=== PATIENT | male | born 1985 | race Caucasian/White ===

== ENCOUNTER 2016-05-18 08:29 | Emergency (ER) | payer SELFPAY ==
[~2016-05-18] VITALS: Ht 180.3 cm; Wt 74.8 kg
--- NOTE | 2016-05-18 09:38 | ED Back Pain ---
General Chief Complaint: Back Problems Stated Complaint: R LOWER BACK PAIN Nursing Triage Note: TO ROOM 10 VIA AMB WITHOUT DIFFICULTY. COMPLAINS OF LEFT SIDED BACK PAIN X2 YEARS THAT HAS BECAME WORSE STARTING YESTERDAY. STATES HE IS TAKING EXTRA STRENGTH TYLENOL WHICH IS NOT HELPING. Nursing Sepsis Screen: No Definite Risk Source of Information: Patient, Family Exam Limitations: No Limitations History of Present Illness Time Seen by Provider: 09:34 Initial Comments This 30-year-old white male presents with a complaint of severe right low back pain. Patient has had similar low back pains intermittently for the last several years. The patient's sharp pain located over the right SI joint radiates down into his right leg. The patient has had no imaging done to this point. The patient denies any injury of significance to the low back. Patient states that the pain is made worse by remaining in a sitting position such as driving. He has had no associated foot drop or loss of sensation to the right lower extremity. The patient denies any saddle anesthesia or bowel or bladder impairment. The patient's past medical history was essentially noncontributory to the present illness. Allergies and Home Medications Allergies Coded Allergies: No Known Drug Allergies (Unverified , 05/18/16) Home Medications No Active Prescriptions or Reported Meds Constitutional: No chills, No fever EENTM: No dental problems Respiratory: No cough Cardiovascular: No chest pain Gastrointestinal: No abdominal pain, No nausea Genitourinary: No decreased output, No dysuria, No frequency Musculoskeletal: see HPI, back pain Skin: No rash Psychiatric/Neurological: No Symptoms Reported Past [id number]-[id number]-Vcjwgd Hx Patient Social History Alcohol Use: Occasionally Uses Recreational Drug Use: No Smoking Status: Current Everyday Smoker Recent Foreign Travel: No Contact w/Someone Who Travel: No Recent Infectious Disease Expo: No Recent Hopitalizations: No Surgeries HX Surgeries: Yes Surgeries: Orthopedic Respiratory Hx Respiratory Disorders: No Cardiovascular Hx Cardiac Disorders: No Neurological Hx Neurological Disorders: No Reproductive System Hx Reproductive Disorders: No Genitourinary Hx Genitourinary Disorders: No Gastrointestinal Hx Gastrointestinal Disorders: No Musculoskeletal Hx Musculoskeletal Disorders: Yes Musculoskeletal Disorders: Chronic Back Pain Endocrine Hx Endocrine Disorders: No HEENT HX ENT Disorders: No Cancer Hx Cancer: No Psychosocial Hx Psychiatric Problems: No Reviewed Nursing Assessment Reviewed/Agree w Nursing PMH: Yes Physical Exam Vital Signs Vital Sign - Last 12Hours 05/18/16 08:30 Temp 98.0 Pulse 100 Resp 16 B/P (MAP) 118/80 Pulse Ox 98 Capillary Refill : Less Than 3 Seconds General Appearance: WD/WN, Mild Distress HEENT: Normal ENT Inspection Neck: Full Range of Motion, Normal Inspection Cardiovascular: Regular Rate, Rhythm Respiratory: Chest Non Tender, Lungs Clear Gastrointestinal: Normal Bowel Sounds, Non Tender, Soft Back: Normal Inspection Extremity: Normal Inspection, Normal Range of Motion Neurologic/Psychiatric: Alert, Oriented x3, No Motor/Sensory Deficits Skin: Normal Color, Warm/Dry Progress/Results/Core Measures Results/Orders My Orders Orders - PATRICIA GOMEZ MD Ct Lumbar Spine Wo (05/18/16 09:32) Fentanyl Injection (Sublimaze Injection (05/18/16 09:45) Ketorolac Injection (Toradol Injection) (05/18/16 09:45) Diazepam Tablet (Valium Tablet) (05/18/16 09:45) Medications Given in ED Current Medications Medications Dose Ordered Sig/Trisha Route Start Time Stop Time Status Last Admin Dose Admin Diazepam 5 mg ONCE ONCE PO 05/18/16 09:45 05/18/16 09:46 DC 05/18/16 09:45 5 MG Fentanyl Citrate 50 mcg ONCE ONCE IVP 05/18/16 09:45 05/18/16 09:46 DC 05/18/16 09:44 50 MCG Ketorolac Tromethamine 60 mg ONCE ONCE IM 05/18/16 09:45 05/18/16 09:46 DC 05/18/16 09:45 60 MG Vital Signs/I&O Vital Sign - Last 12Hours 05/18/16 08:30 Temp 98.0 Pulse 100 Resp 16 B/P (MAP) 118/80 Pulse Ox 98 Blood Pressure Mean: 93 Progress Note : Time: 10:59 Progress Note The patient's LS-spine films demonstrate a moderate disc extrusion of the lower lumbar elements. Patient received fentanyl IM in the emergency department for pain. He was given 60 mg of Toradol IM for pain as well. I discussed findings with patient and patient was employed hydrocodone, Norflex , and Toradol at home for pain. I asked him to call or return if problems or questions. Departure Impression Impression: Primary Impression: Lumbar radiculopathy Additional Impression: Back pain Qualified Codes: M54.41 - Lumbago with sciatica, right side Disposition: 01 HOME, SELF-CARE Condition: Improved Departure-Patient Inst. Decision time for Depature: 11:01 Referrals: NO,LOCAL PHYSICIAN (PCP) Primary Care Physician HERBERT KIRBY DO Patient Instructions: Low Back Pain (DC), MANAGING YOUR CHRONIC PAIN, Radiculopathy (DC) Add. Discharge Instructions: Hydrocodone, Norflex, and Toradol as prescribed. Moist heat and/or ice to the low back for symptomatic relief. Come back if any problems or questions. Follow-up with Dr. Kirby for further evaluation as needed. All discharge instructions reviewed with patient and/or family. Voiced understanding. Scripts No Active Prescriptions or Reported Meds PATRICIA GOMEZ MD May 18, 2016 09:38
[2016-05-18] MEDS ORDERED: KETOROLAC 60 MG/2 ML VIAL IM ONE (09:45)
[2016-05-18] MEDS ORDERED: fentaNYL INJECTION 100 MCG/2 ML AMP IVP ONE (09:45)
[2016-05-18] MEDS ORDERED: DIAZEPAM 5 MG (VALIUM) TABLET PO ONE (09:45)
--- NOTE | 2016-05-18 10:34 | Diagnostic Imaging Report ---
CLINICAL INDICATION: Patient with right posterior buttocks pain x24 hours. No history of trauma. EXAM: Axial CT scan of the lumbar spine performed without IV contrast. Sagittal and coronal reformatted images are created. COMPARISON: X-ray of the lumbar spine dated 05/08/2007. FINDINGS: There is no significant paraspinal soft tissue abnormality. There is incompletely imaged mild leftward curvature of the thoracic spine which may be related to patient positioning. There is no evidence of acute lumbar spine fracture or dislocation. The intervertebral disc heights are well-maintained. L1-L2, L2-L3, and L3-L4 levels: Unremarkable. L4-L5: There is a small posterior disc herniation. There is associated [id number] L4-L5 central canal narrowing. There is also moderate bilateral L4-L5 neural foramen narrowing. L5-S1: There is a small posterior disc herniation. There is no significant central spinal canal narrowing. There is moderate bilateral neural foramen narrowing. IMPRESSION: 1: There are small posterior disc herniations at the L4-L5 and L5-S1 levels. There is associated mild to moderate L4-L5 central canal narrowing and moderate bilateral L4-L5 and L5-S1 lateral neural foramen narrowing. 2: The remainder of the lumbar spine shows no significant abnormality. Dictated by: Dictated on workstation # [id number]
[2016-05-18 11:05] VITALS: BP 115/84
--- OUTSIDE RECORDS SUMMARY | 2016-06-21 05:45 | XMS REPORT ---
Author Author [facility] Organization [facility] Address [address] [place], [place] [id number] Care Team Providers Care [employer] Account Representative Name Role Phone PCP Unavailable Allergies and Adverse Reactions Name Reaction Notes NO KNOWN DRUG ALLERGIES Plan of Treatment Not available. Medications Active Name Start Date Estimated Completion Date SIG Comments Mobic oral tablet 15 mg 07/25/2014 08/15/2014 take 1 tablet (15 mg) by oral route once daily for 21 days hydrocodone-acetaminophen oral tablet 5-325 mg 07/25/2014 take 1 tablet by oral route every 6 hours as needed for pain Name Start Date Expiration Date SIG Comments Mobic oral tablet 15 mg 03/02/2013 05/01/2013 take 1 tablet (15 mg) by oral route once daily for 30 days Discontinued Name Start Date Discontinued Date SIG Comments baclofen oral tablet 10 mg 03/02/2013 02/26/2014 take 1 tablet (10 mg) by oral route 3 times per day Problem List Not available. Vital Signs Date Time BP-Sys(mm[Hg] BP-Aileen(mm[Hg]) HR(bpm) RR(rpm) Temp WT HT HC BMI BSA BMI Percentile O2 Sat(%) 07/25/2014 2:41:00 PM 130 mmHg 70 mmHg 86 bpm 16 rpm 97.8 F 154 lbs 71 in 21.48 kg/m2 1.87 m2 98 % 02/26/2014 11:13:00 AM 112 mmHg 78 mmHg 74 bpm 18 rpm 98 F 151.2 lbs 71 in 21.0879 kg/m 1.8536 m 100 % 02/22/2014 11:28:00 AM 100 mmHg 70 mmHg 72 bpm 16 rpm 97.1 F 156 lbs 99 % 03/02/2013 11:30:00 AM 110 mmHg 79 mmHg 73 bpm 16 rpm 97 F 152 lbs 100 % Social History Name Description Comments No significant social history History of Procedures Not available. Results Summary Not available. History Of Immunizations Not available. History of Past Illness Name Date of Onset Comments *No known medical problems Low Back Pain Mar 02 2013 11:32AM Bilateral knee pain Feb 26 2014 11:16AM Resolved Bronchitis Feb 22 2014 11:30AM Great toe pain, right Jul 25 2014 2:43PM Payers Insurance Name Company Name Plan Name Plan Number Policy Number Policy Group Number Start Date Pepper Pabon [id number] N/A History of Encounters Visit Date Visit Type Provider 07/25/2014 Office visit Francesco Dupont APRN 02/26/2014 Office visit Allyson Casas APRN 02/22/2014 Office visit Francesco Dupont APRN 03/02/2013 Office visit Francesco Dupont APRN
--- OUTSIDE RECORDS SUMMARY | 2016-06-21 05:45 | XMS REPORT | Continuity of Care Document ---
Author Author [facility] Organization [facility] Address Unknown Phone Unavailable Allergies Medications Problems Procedures Results Encounters ACCT No. Visit Date/Time Discharge Status Pt. Type Provider Facility Loc./Unit Complaint [id number] 09/24/2014 21:54:26 09/24/2014 23: 59:59 [facility] Outpatient Francesco Dupont [id number] 09/24/2014 21:52:50 09/24/2014 23: 59:59 [facility] Outpatient Francesco Dupont [id number] 02/26/2014 11:31:10 02/26/2014 23: 59:59 [facility] Outpatient Allyson Casas [id number] 02/22/2014 12:00:07 02/22/2014 23: 59:59 [facility] Outpatient Francesco Dupont [id number] 03/02/2013 12:18:41 03/02/2013 23: 59:59 [facility] Outpatient Francesco Dupont
--- OUTSIDE RECORDS SUMMARY | 2016-06-21 05:45 | XMS REPORT ---
Author Author Francesco Dupont [facility] Address [address] [facility] [address] [place], [place] [id number] Care Team Providers Care Vascular Ultrasound Technologist Name Role Phone Fracnesco Dupont PCP Allergies and Adverse Reactions Name Reaction Notes NO KNOWN DRUG ALLERGIES Plan of Treatment Not available. Medications Active Name Start Date Estimated Completion Date SIG Comments hydrocodone-acetaminophen 5-325 mg oral tablet 07/25/2014 take 1 tablet by oral route every 6 hours as needed for pain Name Start Date Expiration Date SIG Comments Mobic 15 mg oral tablet 03/02/2013 05/01/2013 take 1 tablet (15 mg) by oral route once daily for 30 days Mobic 15 mg oral tablet 07/25/2014 08/15/2014 take 1 tablet (15 mg) by oral route once daily for 21 days Discontinued Name Start Date Discontinued Date SIG Comments baclofen 10 mg oral tablet 03/02/2013 02/26/2014 take 1 tablet (10 mg) by oral route 3 times per day Problem List Not available. Vital Signs Date Time BP-Sys(mm[Hg] BP-Aileen(mm[Hg]) HR(bpm) RR(rpm) Temp WT HT HC BMI BSA BMI Percentile O2 Sat(%) 07/11/2015 8:14:00 AM 125 mmHg 80 mmHg 95 bpm 16 rpm 97.2 F 163 lbs 71 in 22.73 kg/m2 1.92 m2 98 % 07/27/2014 2:30:00 PM 110 mmHg 70 mmHg 101 bpm 16 rpm 98.7 F 154 lbs 71 in 21.4784 kg/m 1.8706 m 99 % 07/25/2014 2:41:00 PM 130 mmHg 70 mmHg [...] No significant social history History of Procedures Date Ordered Description Order Status 07/15/2015 12:00 AM DOT Physical w UA Reviewed 03/02/2013 12:00 AM Lumbar Spine 2-3 Views - MOB Reviewed 07/25/2014 12:00 AM RADEX TOE MINIMUM 2 VIEWS Returned Results Summary Not available. History Of Immunizations Not available. 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
--- OUTSIDE RECORDS SUMMARY | 2016-06-21 05:45 | XMS REPORT ---
Author Author [facility] Organization [facility] Address [address] [place], [place] [id number] Care Team Providers Care Engineer Systems Name Role Phone PCP Unavailable Allergies and [...] HC BMI BSA BMI Percentile O2 Sat(%) 07/27/2014 2:30:00 PM 110 mmHg 70 mmHg 101 bpm 16 rpm 98.7 F 154 lbs 71 in 21.48 kg/m2 1.87 m2 99 % 07/25/2014 2:41:00 PM 130 mmHg 70 mmHg 86 bpm 16 rpm 97.8 F 154 lbs 71 in 21.4784 kg/m 1.8706 m 98 % 02/26/2014 11:13:00 AM 112 mmHg 78 mmHg 74 bpm 18 rpm 98 F 151.2 lbs 71 in 21.09 kg/m2 1.85 m2 100 % 02/22/2014 11:28:00 AM 100 mmHg [...] URI with cough Jul 27 2014 2:32PM Payers Insurance Name Company Name Plan Name Plan Number Policy Number Policy Group Number Start Date Cigna C[employer]a [id number] N/A History of Encounters Visit Date Visit Type Provider 07/27/2014 Office visit Francesco Dupont APRN 07/25/2014 Office visit Francesco Dupont APRN 02/26/2014 Office visit Allyson Casas APRN 02/22/2014 Office visit Francesco Dupont APRN 03/02/2013 Office visit Francesco Dupont APRN
--- OUTSIDE RECORDS SUMMARY | 2016-06-21 05:45 | XMS REPORT | CCD ---
Author Author RODOLFO SCHERER Organization Unknown Address [address] [facility] [address] [place] [id number] Care Team Providers Care Structural Engineering Project Manager Name Role Phone BRYAN QUINONES MD Attphys BRYAN QUINONES MD Prisurg Vital Signs Unknown. Allergies Allergy Code Allergy Type Reaction Status No Known Drug Allergies 0 No known drug allergies Active Procedures Unknown. History of Immunizations Unknown. Problems Unknown. Results Unknown. Medications Unknown. Medications Administered Unknown. Encounters Encounter Diagnosis Diagnosis Code Start Date LUMBAGO [id number] 02/27/2013 Social History Smoking Status Code Start Date End Date Current every day smoker [id number] Patient Decision Aids Unknown. Instructions You were admitted to [facility] on 02/27/2013 with a principle diagnosis of LUMBAGO. You were discharged from [facility] on 02/27/2013. Should you have any questions prior to discharge, please contact a member of your healthcare team. If you have left the hospital and have any questions, please contact your primary care physician. Chief Complaint and Reason For Visit Chief Complaint Date of Onset LOW BACK PAIN Function Status Unknown. Plan of Care Unknown. Referral/Transition of Care Unknown.
== END 2016-05-18 11:05 | disposition home or self-care (01) ==
LOC: EDUNIT# 08:29 → ER 08:36
DX: M54.16 Radiculopathy, lumbar region (principal); F17.210 Nicotine dependence, cigarettes, uncomplicated
CPT/HCPCS: 72131; 96372; 96374; 99281